=== PATIENT | male | born 2000 | race Asian ===

== ENCOUNTER 2023-12-14 19:59 | Inpatient (IN) | payer OTHER ==
[2023-12-14 21:19] LABS: #Eosinphils 0.1 thou/uL (0.0-0.7); #Monocytes 0.8 thou/uL (0.11-0.59); #Neutrophils 6.5 thou/uL (1.40-6.50); %Basophils 0.2 % (0.0-1.0); %Eosinophils 0.9 % (0.0-10.0); %Lymphocytes 16.8 % (21.0-51.0); %Monocytes 8.6 % (0.0-10.0); %Neutrophils 73.3 % (42.0-75.0); Hematocrit 43.7 % (42.0-52.0); Hemoglobin 14.9 g/dL (14.0-18.0); Mean Corpuscular HGB CONC 34.1 g/dL (32.0-36.0); Mean Corpuscular Hemoglobin 29.2 pg (27.0-31.0); Mean Corpuscular Volume 85.5 fl (78.0-98.0); Mean Platelet Volume 9.2 fL (7.4-10.4); Platelet Count 220 10x3/uL (130-400); RBC Distribution Width 12.3 % (11.5-14.5); Red Blood Cell (RBC) Count 5.11 mill/uL (4.70-6.10); White Blood Cell (WBC) Count 8.9 10x3/uL (4.8-10.8)
[2023-12-14 21:57] LABS: ALT (SGPT) 14 U/L (8-55); AST (SGOT) 21 U/L (5-34); Albumin 4.6 g/dL (3.5-5.0); Alkaline Phosphatase 74 U/L (40-110); Anion Gap 12 mmol/L (10-20); Bilirubin, Total 0.4 mg/dL (0.2-1.2); Calc. Creatinine Clearance 0 mL/min (70-130); Calcium 9.5 mg/dL (7.8-10.44); Carbon Dioxide 23 mmol/L (22-29); Chloride 107 mmol/L (98-107); Estimated GFR 101; Globulin 2.9 g/dL (2.4-3.5); Glucose 111 mg/dL (70-105); Potassium 3.6 mmol/L (3.5-5.1); Protein, Total 7.5 g/dL (6.0-8.3); Sodium 138 mmol/L (136-145)
[2023-12-14 21:58] LABS: BUN (Urea Nitrogen) 20 mg/dL (8.9-20.6)
[2023-12-14] MEDS ORDERED: Morphine 4 MG/ML VIAL ONE (22:49)
[2023-12-15] MEDS ORDERED: Ondansetron ODT 4 MG TAB SL PRN (00:15)
[2023-12-15] MEDS ORDERED: Ondansetron PF 4 MG/2 ML Vial IVP PRN (00:15)
[2023-12-15] MEDS ORDERED: Acetaminophen 325 MG TAB PO PRN (00:15)
[2023-12-15] MEDS: Morphine 4 MG/ML VIAL SLOW IVP PRN (02:01)
[2023-12-15] MEDS: Lactated Ringer's 1,000 ML IV SCH ×3 (02:02→21:15)
[2023-12-15 02:39] VITALS: BMI 21.4
[2023-12-15] MEDS ORDERED: CEFAZOLIN 2 GM in Sodium Chloride 0.9% 100 ML IVPB SCH (07:15)
[2023-12-15] MEDS ORDERED: Enoxaparin 30 MG (0.3 mL) SYRINGE SC SCH (09:00)
[2023-12-15] MEDS ORDERED: CEFAZOLIN 1 GM in Sodium Chloride 0.9% 100 ML IVPB SCH (10:15)
[2023-12-15] MEDS ORDERED: Gentamicin Sulfate 80 MG in Premix 1 BAG IVPB SCH (10:15)
[2023-12-15] MEDS ORDERED: Gentamicin 80 MG/2 ML VIAL ONE (10:50)
[2023-12-15] MEDS ORDERED: Sodium Chloride 0.9% 100 ML ONE (10:50)
[2023-12-15] MEDS ORDERED: CEFAZOLIN 1 GM VIAL ONE (10:50)
[2023-12-15] MEDS ORDERED: Bupivacaine PF 0.5% 30 ML VIAL ONE (11:15)
[2023-12-15] MEDS ORDERED: fentaNYL 50 mcg/mL 1 mL Vial ONE (11:21)
[2023-12-15] MEDS ORDERED: Midazolam HCl 2 mg/2 ml Vial ONE (11:21)
[2023-12-15] MEDS ORDERED: fentaNYL PF 100 MCG/2 ML SYRINGE ONE (11:33)
[2023-12-15] MEDS ORDERED: PROPOFOL 20 ML ONE ×2 (11:33→16:10)
[2023-12-15] MEDS ORDERED: PHENYLEPHRINE-NS 100 MCG/ML 10 ML SYRINGE ONE (12:27)
[2023-12-15] MEDS ORDERED: Ondansetron PF 4 MG/2 ML Vial ONE (12:39)
[2023-12-15] MEDS ORDERED: Dexamethasone 4 mg/ml Vial ONE (12:39)
[2023-12-15] MEDS ORDERED: ePHEDrine Sulfate 50 MG/10 ML VIAL ONE (12:40)
[2023-12-15] MEDS ORDERED: HYDROcodone/Acetaminophen 5/325 mg Tablet PO PRN (15:29)
[2023-12-15] MEDS ORDERED: TETANUS, DIPHTHERIA TOX,ADULT (TDVAX) 0.5 ML VIAL IM ONE (15:29)
[2023-12-15] MEDS ORDERED: fentaNYL 50 mcg/mL 1 mL Vial SLOW IVP PRN (15:29)
[2023-12-15] MEDS ORDERED: Morphine 4 MG/ML VIAL SLOW IVP PRN (15:29)
[2023-12-15] MEDS ORDERED: Communication Order-Pharmacy FS SCH (15:30)
[2023-12-15] MEDS ORDERED: Bacitracin Zinc Ointment 30 gm TUBE ONE (17:07)
[2023-12-15] MEDS ORDERED: Ondansetron HCl/PF 4 MG/2 ML Vial IVP PRN (17:46)
[2023-12-15] MEDS ORDERED: Promethazine HCl 25 MG/ML VIAL IM PRN (17:46)
[2023-12-15] MEDS: CEFAZOLIN 1 GM in Sodium Chloride 0.9% 100 ML IVPB SCH (21:14)
[2023-12-15] MEDS: Aspirin 81 mg Enteric Coated Tablet PO SCH (21:14)
[2023-12-16] MEDS: Lactated Ringer's 1,000 ML IV SCH ×3 (03:04→16:09)
[2023-12-16] MEDS: Acetaminophen/Codeine 30-300mg Tablet PO PRN ×2 (04:01→21:11)
[2023-12-16] MEDS: Morphine 4 MG/ML VIAL SLOW IVP PRN (04:20)
[2023-12-16] MEDS: CEFAZOLIN 1 GM in Sodium Chloride 0.9% 100 ML IVPB SCH ×4 (05:06→22:37)
[2023-12-16] MEDS: Ketorolac Tromethamine 30 MG (1 mL) VIAL IVP PRN (05:07)
[2023-12-16] MEDS: Enoxaparin 40 MG (0.4 mL) SYRINGE SC SCH (08:03)
[2023-12-16] MEDS: Aspirin 81 mg Enteric Coated Tablet PO SCH ×2 (08:03→21:04)
[2023-12-16] MEDS ORDERED: Magnevist 469MG/ML 20 ML VIAL ONE (13:07)
[2023-12-17] MEDS: Lactated Ringer's 1,000 ML IV SCH ×3 (01:40→17:16)
[2023-12-17] MEDS: CEFAZOLIN 1 GM in Sodium Chloride 0.9% 100 ML IVPB SCH (05:40)
[2023-12-17] MEDS: Enoxaparin 40 MG (0.4 mL) SYRINGE SC SCH (08:24)
[2023-12-17] MEDS: Aspirin 81 mg Enteric Coated Tablet PO SCH ×2 (08:24→21:09)
[2023-12-17] MEDS: Ketorolac Tromethamine 30 MG (1 mL) VIAL IVP PRN (21:09)
[2023-12-17] MEDS: Acetaminophen/Codeine 30-300mg Tablet PO PRN (21:10)
[2023-12-18] MEDS: Lactated Ringer's 1,000 ML IV SCH (04:15)
[2023-12-18 05:11] VITALS: TEMP 98
[2023-12-18 07:25] VITALS: BP 115/78
[2023-12-18] MEDS ORDERED: FLU VACC QS2023-24(6MOS UP)/PF 60 MCG/0.5 ML SYRINGE IM ONE (09:00)
== END 2023-12-18 06:45 | disposition home or self-care (01) | DRG 511 ==
LOC: ERS 19:59 → INTOOBSV 22:34 → SURG B 22:34 → OBSVTOIN 12-17 13:52
PROVIDERS: ADMIT Surgery; ATTEND Surgery
PROC: 0PSN04Z Reposition Left Carpal with Internal Fixation Device, Open Approach (ICD-10-PCS; principal; 2023-12-15)
PROC: 0PSJ04Z Reposition Left Radius with Internal Fixation Device, Open Approach (ICD-10-PCS; 2023-12-15)
PROC: 0PSL04Z Reposition Left Ulna with Internal Fixation Device, Open Approach (ICD-10-PCS; 2023-12-15)
DX: S62.002A Unspecified fracture of navicular [scaphoid] bone of left wrist, initial encounter for closed fracture (principal); S52.592A Other fractures of lower end of left radius, initial encounter for closed fracture; S52.612A Displaced fracture of left ulna styloid process, initial encounter for closed fracture; V29.99XA Rider (driver) (passenger) of other motorcycle injured in unspecified traffic accident, initial encounter
CPT/HCPCS: 36415; 36416; 80053; 85025; 96365; 96372; 96374; 96375; 96376; A9579; C1713; G0378; G0390; J0690; J1100; J1580; J1650; J1885; J2250; J2270; J2405; J2704; J3010; J3490; J7120; S0020